=== PATIENT | female | born 1940 | race Caucasian/White ===

== ENCOUNTER → 2019-10-27 | Outpatient (CLI) | payer MEDICARE, OTHER ==
[~2019-10-27] MED LIST: AMIO200 PO; AMLO5 PO; ASPI81CH PO; CALCAVITD PO; CALCIUM PO; CARV25 PO; CARV6.25 PO; CHOL10002 PO; DIGO.125 PO; DILT120; DIPH50 PO; ELIQUIS5 MG PO; ERGO400 PO; FLUT.05NI; FURO20 PO; HYDR1TAB94 PO; IPRA.03NI; IPRA.06NI; Keflex500 MG PO; LETR2.5 PO; LEVSOD125; LEVSOD150 PO; LISI20 PO; LOVA20 PO; LOVA40 PO; MAGNESIUM PO; METF500 PO; METFORMIN HCL500 MG PO; MONT10T PO; MULVITMINF PO; MYRBETRIQ50 MG PO; Magnesium500 M1 PO; Nexium40 MG PO; Norco 5-325 Ta1 EACH PO; OXYACE5T PO; Omeprazole20 M1 PO; RXHYD5325 PO; Singulair10 MG PO; TIOT18; TIOT18 INH; WARF5 PO; WARF7.5 PO
[2019-10-28 15:50] LABS: Influenza A Negative (NEGATIVE); Influenza B Negative (NEGATIVE)
== END | disposition home or self-care (01) ==
LOC: LAB SHORT 18:12 → LAB 18:12
DX: J20.9 Acute bronchitis, unspecified (principal); R50.9 Fever, unspecified; R05 Cough
CPT/HCPCS: 87804; 87807

== ENCOUNTER 2020-05-09 14:14 | Emergency (ER) | payer MEDICARE, OTHER ==
[~2020-05-09] VITALS: Ht 162.6 cm; Wt 59.0 kg
[2020-05-09] MEDS ORDERED: Norco 5-325 Ta1 EACH PO (16:56)
[2020-05-09] MEDS ORDERED: ELIQUIS5 MG PO (17:18)
== END 2020-05-09 17:18 | disposition home or self-care (01) ==
LOC: ER 14:14
DX: S52.124A Nondisplaced fracture of head of right radius, initial encounter for closed fracture (principal); S00.83XA Contusion of other part of head, initial encounter; I48.91 Unspecified atrial fibrillation; E11.9 Type 2 diabetes mellitus without complications; E78.5 Hyperlipidemia, unspecified; K21.9 Gastro-esophageal reflux disease without esophagitis; I10 Essential (primary) hypertension; J44.9 Chronic obstructive pulmonary disease, unspecified; E03.9 Hypothyroidism, unspecified; Z88.4 Allergy status to anesthetic agent; Z79.01 Long term (current) use of anticoagulants; Z79.84 Long term (current) use of oral hypoglycemic drugs; Z79.899 Other long term (current) drug therapy; Z87.891 Personal history of nicotine dependence; W01.0XXA Fall on same level from slipping, tripping and stumbling without subsequent striking against object, initial encounter
CPT/HCPCS: 29105; 73030; 73080; 99283-25; A9270-GY

== ENCOUNTER 2020-06-17 23:17 | Inpatient (IN) | payer MEDICARE, OTHER ==
[~2020-06-17] VITALS: Ht 162.6 cm; Wt 62.4 kg
[2020-06-17 23:45] LABS: BASOPHILS ABSOLUTE AUTO 0.04 K/mm3 (0.00-0.23); BASOPHILS PERCENT AUTO 1 % (0-2); EOSINOPHILS ABSOLUTE AUTO 0.15 K/mm3 (0.00-0.68); EOSINOPHILS PERCENT AUTO 2 % (0-6); Hematocrit 36.2 % (33.0-51.0); Hemoglobin 11.4 g/dL (11.5-16.0); IMMATURE GRAN ABSOLUTE AUTO 0.02 K/mm3 (0.00-0.10); IMMATURE GRAN PERCENT AUTO 0 % (0-1); LYMPHOCYTES ABSOLUTE AUTO 2.55 K/mm3 (0.84-5.20); LYMPHOCYTES PERCENT AUTO 32 % (21-46); MONOCYTES ABSOLUTE AUTO 0.71 K/mm3 (0.16-1.47); MONOCYTES PERCENT AUTO 9 % (4-13); Mean Corpuscular HGB 29.5 pg (26.0-34.0); Mean Corpuscular HGB Conc 31.5 g/dL (31.5-36.5); Mean Corpuscular Volume 94 fL (80-100); NEUTROPHILS ABSOLUTE AUTO 4.46 K/mm3 (1.96-9.15); NEUTROPHILS PERCENT AUTO 56 % (41-73); Platelet Count 179 K/mm3 (150-400); RDW Coefficient Variation 14.8 % (11.7-14.2); RDW Standard Deviation 50.9 fL (35.1-46.3); Red Blood Cell Count 3.87 M/mm3 (3.80-5.20); White Blood Cell Count 7.93 K/mm3 (4.00-11.30)
[2020-06-17 23:57] LABS: Alanine Aminotransfer (ALT/SGP 16 U/L (12-78); Albumin, Blood 3.5 g/dL (3.4-5.0); Albumin/Globulin Ratio 1.1 (0.8-1.8); Alk Phos 73 U/L (50-136); Anion Gap 10 mmol/L (6-16); Aspartate Aminotrans (AST/SGOT 12 U/L (12-37); Bilirubin, Total 0.3 mg/dL (0.1-1.0); Blood Urea Nitrogen 11 mg/dL (8-24); Bun/Creatinine Ratio 14.8 (12.0-20.0); CO2, Blood 23 mmol/L (21-32); Calcium, Blood 9.1 mg/dL (8.5-10.1); Chloride, Blood 103 mmol/L (98-108); Creatinine, Blood 0.74 mg/dL (0.40-1.00); Globulin, Blood 3.2 g/dL (2.2-4.0); Glomerular Filtration Rate >60 (60-); Glucose, Blood 117 mg/dL (70-99); Sodium, Blood 136 mmol/L (136-145); Total Protein, Blood 6.7 g/dL (6.4-8.2)
[2020-06-18 00:01] LABS: International Normalized Ratio 1.02; Prothrombin Time Results 10.9 Sec (9.7-11.5)
[2020-06-18 01:37] LABS: Source, Urine Clean Catch
[2020-06-18 01:41] LABS: Appearance, Urine Clear (Clear); Bilirubin, Urine Neg (Neg); Blood, Urine Neg (Neg); Color, Urine Yellow (P-Yellow); Glucose Qualitative, Urine Neg (Neg); Ketones, Urine Neg (Neg); Leukocyte Esterase, Urine Neg (Neg); Nitrite, Urine Neg (Neg); Protein, Urine Neg (Neg); Specific Gravity, Urine 1.005 (1.003-1.022); Urobilinogen, Urine NORM (Normal)
[2020-06-18 06:05] LABS: BASOPHILS ABSOLUTE AUTO 0.02 K/mm3 (0.00-0.23); BASOPHILS PERCENT AUTO 0 % (0-2); EOSINOPHILS ABSOLUTE AUTO 0.01 K/mm3 (0.00-0.68); EOSINOPHILS PERCENT AUTO 0 % (0-6); Hematocrit 31.8 % (33.0-51.0); Hemoglobin 9.8 g/dL (11.5-16.0); IMMATURE GRAN ABSOLUTE AUTO 0.06 K/mm3 (0.00-0.10); IMMATURE GRAN PERCENT AUTO 1 % (0-1); LYMPHOCYTES ABSOLUTE AUTO 1.27 K/mm3 (0.84-5.20); LYMPHOCYTES PERCENT AUTO 10 % (21-46); MONOCYTES ABSOLUTE AUTO 0.62 K/mm3 (0.16-1.47); MONOCYTES PERCENT AUTO 5 % (4-13); Mean Corpuscular HGB 29.5 pg (26.0-34.0); Mean Corpuscular HGB Conc 30.8 g/dL (31.5-36.5); Mean Corpuscular Volume 96 fL (80-100); Mean Platelet Volume 11.4 fL (9.1-12.4); NEUTROPHILS ABSOLUTE AUTO 11.22 K/mm3 (1.96-9.15); NEUTROPHILS PERCENT AUTO 85 % (41-73); Platelet Count 231 K/mm3 (150-400); RDW Standard Deviation 52.5 fL (35.1-46.3); Red Blood Cell Count 3.32 M/mm3 (3.80-5.20)
[2020-06-18 06:20] LABS: Anion Gap 10 mmol/L (6-16); Blood Urea Nitrogen 12 mg/dL (8-24); Bun/Creatinine Ratio 16.5 (12.0-20.0); CO2, Blood 23 mmol/L (21-32); Calcium, Blood 8.8 mg/dL (8.5-10.1); Chloride, Blood 103 mmol/L (98-108); Creatinine, Blood 0.73 mg/dL (0.40-1.00); Glomerular Filtration Rate >60 (60-); Glucose, Blood 178 mg/dL (70-99); Potassium, Blood 4.2 mmol/L (3.5-5.5); Sodium, Blood 136 mmol/L (136-145)
--- NOTE | 2020-06-18 07:58 | NUR ---
BRADEN PT ADMITTED THIS SHIFT FOR CLOSED R HIP FX. NPO BEDREST PENDING POSSIBLE OR. REQUIRED DILAUDID 0.5 MG IV FOR PAIN.
--- NOTE | 2020-06-18 09:13 | NUR ---
PACER PT REPORTED TO NOC RN THAT HER PACEMAKER BATTERY IS BEING CHECKED EVERY 2 MONTHS. PT REPORTED SHE WAS UNSURE OF THE REASON. DR. CHRISTOPHER NOTIFIED AND VERBALIZED NO NEED FOR PACEMAKER INTERROGATION AT THIS TIME. NO EVENTS ON TELE, VSS. WILL CONTINUE TO MONITOR.
--- NOTE | 2020-06-18 14:18 | NUR ---
PT TO IMAGING
--- NOTE | 2020-06-18 14:41 | NUR ---
PT BACK FROM IMAGING.
[2020-06-18] MEDS ORDERED: FLUT.05NI INH (16:36)
[2020-06-18] MEDS ORDERED: HYDR1TAB94 PO (16:44)
--- NOTE | 2020-06-18 18:10 | NUR ---
SHIFT SUMMARY PT AOX4. VSS. PT GROUND LEVEL FALL, FX R HIP W/ EXTERNAL ROTATION . ANTICIPATING SURGERY PHYLLIS WITH DR. SEGOVIA. PT HAS A PACEMAKER, ON TELE, PACED AT 72 PER [facility]. PT HX OF COPD AND LOBECTOMY. SHE IS ON ROOM AIR AT 96 DENIES SOB AND DENIES CHEST PAIN/PRESSURE. PT TOLERATING PO INTAKE, DENIES NAUSEA AND NO VOMITING. ALTHOUGH SHE HAD 1 EPISODE OF NAUSEA AND VOMITING THIS MORNING AFTER ADMINSTERING DILAUDID. PT STS THAT SHE HAD PROBLEMS WITH HER PACEMAKER IN THE PAST. SHE HAD TO HAVE THE PACEMAKER'S BATTERY CHECK EVERY COUPLE MONTHS. SHE WILL BE NPO AFTER MIDNIGHT. 18G IV ON R FOREARM PRESENT. CBG OF 207 BEFORE DINNER. PT ALSO C/O MUSCLE CRAMPS ON BLE. CALLED PHARMACY TO RECONCILE MEDICATION LIST BY DAR HERMOSILLO.
[2020-06-19 03:57] LABS: BASOPHILS ABSOLUTE AUTO 0.02 K/mm3 (0.00-0.23); BASOPHILS PERCENT AUTO 0 % (0-2); EOSINOPHILS ABSOLUTE AUTO 0.05 K/mm3 (0.00-0.68); EOSINOPHILS PERCENT AUTO 1 % (0-6); Hematocrit 24.2 % (33.0-51.0); Hemoglobin 7.6 g/dL (11.5-16.0); IMMATURE GRAN ABSOLUTE AUTO 0.03 K/mm3 (0.00-0.10); IMMATURE GRAN PERCENT AUTO 0 % (0-1); LYMPHOCYTES ABSOLUTE AUTO 1.63 K/mm3 (0.84-5.20); LYMPHOCYTES PERCENT AUTO 18 % (21-46); MONOCYTES ABSOLUTE AUTO 0.93 K/mm3 (0.16-1.47); MONOCYTES PERCENT AUTO 10 % (4-13); Mean Corpuscular HGB 29.7 pg (26.0-34.0); Mean Corpuscular HGB Conc 31.4 g/dL (31.5-36.5); Mean Corpuscular Volume 95 fL (80-100); Mean Platelet Volume 11.4 fL (9.1-12.4); NEUTROPHILS ABSOLUTE AUTO 6.37 K/mm3 (1.96-9.15); NEUTROPHILS PERCENT AUTO 71 % (41-73); Platelet Count 159 K/mm3 (150-400); RDW Standard Deviation 51.5 fL (35.1-46.3); Red Blood Cell Count 2.56 M/mm3 (3.80-5.20); White Blood Cell Count 9.03 K/mm3 (4.00-11.30)
[2020-06-19 04:11] LABS: Albumin, Blood 2.9 g/dL (3.4-5.0); Anion Gap 4 mmol/L (6-16); Blood Urea Nitrogen 23 mg/dL (8-24); Bun/Creatinine Ratio 19.5 (12.0-20.0); CO2, Blood 29 mmol/L (21-32); Calcium, Blood 8.8 mg/dL (8.5-10.1); Chloride, Blood 99 mmol/L (98-108); Creatinine, Blood 1.18 mg/dL (0.40-1.00); Glomerular Filtration Rate 47 (60-); Glucose, Blood 145 mg/dL (70-99); Phosphorus, Blood 3.8 mg/dL (2.5-4.9); Potassium, Blood 4.9 mmol/L (3.5-5.5); Sodium, Blood 132 mmol/L (136-145)
--- NOTE | 2020-06-19 07:00 | NUR ---
RECVD REPORT FROM PREVIOUS SHIFT RN VIDA, PT AWAKE IN BED, A/O X 4, PLEASANT/COOPERATIVE. BED IN LOWEST POSITION, BED RAILS UP X 2, CALL LIGHT WITHIN REACH
--- NOTE | 2020-06-19 08:01 | NUR ---
SUMMARY PREOP PREPARED.SWELLING R THIGH AND H/H DROP. DAY RN AWARE AND AGRESS TO FU. CIRC CKS INTACT.
--- NOTE | 2020-06-19 09:20 | NUR ---
DR CHRISTOPHER HAD ROUNDING APPROX 0900. UP ON ROUNDING, PT STATES SHE IS "ITCHING LIKE CRAZY", AND THAT THIS HAS BEEN A SIDE EFFECT AFTER RECEIVING IV MEDICATION ON PREVIOUS ADMISSION. RECEIVED ORDER FOR IV BENADRYL FOR ITCHING
--- NOTE | 2020-06-19 11:21 | NUR ---
History, Chart, Medications and Allergies reviewed before start of procedure.Patient confirms NPO status and agrees with scheduled surgery.PT IS AWAKE, ALERT, ORIENTED X4. DENIES PAIN WHILE LAYING STILL.
--- NOTE | 2020-06-19 13:25 | NUR ---
06/19/20 1324 Maite Covarrubias PT ENTERED OR WITH CHRISTOPHER CATHETER
[2020-06-19 16:08] LABS: Hematocrit 25.5 % (33.0-51.0); Hemoglobin 8.1 g/dL (11.5-16.0)
--- NOTE | 2020-06-19 16:30 | NUR ---
pt returned to room via own bed from recovery, a/0 x 4, pleasant/cooperative, but drowsy. gamma nail repair of hip performed, rcvd 1 unit prbc during procedure. pt's in room. dr zaman rounding on pt and . post op vs commenced and stable thus far. jones catheter patent and draining clear dark yellow urine. aquacel dressing on surgical site from hip to knee c/d/i, capillary refill <3 seconds, able to wiggle toes and feels sensation
--- NOTE | 2020-06-19 18:30 | NUR ---
SHIFT SUMMARY: VSS, NO ACUTE CHANGES. PT COMPLETED SURGICAL REPAIR OF R HIP WITH A GAMMA NAIL. PT RETURNED TO HER ROOM APPROX 1630, POST OP VSS AND CONTINUING. PT DENIES N/V, PROVIDED ANALGESIA PER MAR AND OFFERED PO INTAKE. PT DENIES BEING HUNGRY.
[2020-06-20 04:15] LABS: BASOPHILS ABSOLUTE AUTO 0.01 K/mm3 (0.00-0.23); BASOPHILS PERCENT AUTO 0 % (0-2); EOSINOPHILS PERCENT AUTO 0 % (0-6); Hematocrit 21.9 % (33.0-51.0); IMMATURE GRAN ABSOLUTE AUTO 0.04 K/mm3 (0.00-0.10); IMMATURE GRAN PERCENT AUTO 0 % (0-1); LYMPHOCYTES ABSOLUTE AUTO 1.07 K/mm3 (0.84-5.20); LYMPHOCYTES PERCENT AUTO 11 % (21-46); MONOCYTES ABSOLUTE AUTO 0.93 K/mm3 (0.16-1.47); MONOCYTES PERCENT AUTO 10 % (4-13); Mean Corpuscular HGB 30.3 pg (26.0-34.0); Mean Corpuscular Volume 95 fL (80-100); Mean Platelet Volume 11.4 fL (9.1-12.4); NEUTROPHILS ABSOLUTE AUTO 7.39 K/mm3 (1.96-9.15); NEUTROPHILS PERCENT AUTO 78 % (41-73); Platelet Count 143 K/mm3 (150-400); RDW Coefficient Variation 14.8 % (11.7-14.2); RDW Standard Deviation 50.6 fL (35.1-46.3); Red Blood Cell Count 2.31 M/mm3 (3.80-5.20); White Blood Cell Count 9.44 K/mm3 (4.00-11.30)
[2020-06-20 04:33] LABS: Albumin, Blood 2.6 g/dL (3.4-5.0); Anion Gap 4 mmol/L (6-16); Blood Urea Nitrogen 25 mg/dL (8-24); Bun/Creatinine Ratio 22.7 (12.0-20.0); CO2, Blood 29 mmol/L (21-32); Calcium, Blood 8.2 mg/dL (8.5-10.1); Chloride, Blood 99 mmol/L (98-108); Glomerular Filtration Rate 51 (60-); Glucose, Blood 186 mg/dL (70-99); Potassium, Blood 5.7 mmol/L (3.5-5.5); Sodium, Blood 132 mmol/L (136-145)
--- NOTE | 2020-06-20 07:33 | NUR ---
SUMMARY PT REPOSITIONING IN BED WITH 2 PERSON ASSIST. VERB IV DILAUDID EFFECTIVE, BUT SLIGHT ITCHING.PLANS TO TAKE NORCO WITH BREAKFAST.CIRC CKS INTACT. TOLERATING PO.
--- NOTE | 2020-06-20 07:49 | NUR ---
PER [facility] SUBSTITUTE FOR ELIQUIS 5MG BID IS XARELTO 20 MG QD PHARM INSTRUCTED ME TO PUT IN 1200.
[2020-06-20 10:28] LABS: Hematocrit 21.3 % (33.0-51.0)
[2020-06-20 10:49] LABS: Albumin, Blood 2.5 g/dL (3.4-5.0); Anion Gap 4 mmol/L (6-16); Blood Urea Nitrogen 28 mg/dL (8-24); Bun/Creatinine Ratio 23.5 (12.0-20.0); CO2, Blood 27 mmol/L (21-32); Chloride, Blood 98 mmol/L (98-108); Creatinine, Blood 1.19 mg/dL (0.40-1.00); Glomerular Filtration Rate 46 (60-); Glucose, Blood 222 mg/dL (70-99); Phosphorus, Blood 3.8 mg/dL (2.5-4.9); Potassium, Blood 5.5 mmol/L (3.5-5.5); Sodium, Blood 129 mmol/L (136-145)
[2020-06-20 13:12] LABS: Percent Saturation 9.1 % (15.0-50.0)
--- NOTE | 2020-06-20 18:47 | NUR ---
SHIFT SUMMARY PT WAS NOT VERY SUCCESSFUL WITH THERAPY TODAY. PLEASANT. PAINFUL; REQUIRING IV PAIN MED x 2 THIS SHIFT. PT IS AGAINST ANY SNF DC PLANNING. EATING AND DRINKING WELL. SURG SITE WNL BUT EDEMA NOTED.
[2020-06-21 04:04] LABS: BASOPHILS ABSOLUTE AUTO 0.02 K/mm3 (0.00-0.23); BASOPHILS PERCENT AUTO 0 % (0-2); EOSINOPHILS PERCENT AUTO 1 % (0-6); Hematocrit 19.8 % (33.0-51.0); Hemoglobin 6.4 g/dL (11.5-16.0); IMMATURE GRAN ABSOLUTE AUTO 0.08 K/mm3 (0.00-0.10); IMMATURE GRAN PERCENT AUTO 1 % (0-1); LYMPHOCYTES ABSOLUTE AUTO 1.25 K/mm3 (0.84-5.20); LYMPHOCYTES PERCENT AUTO 14 % (21-46); MONOCYTES ABSOLUTE AUTO 0.88 K/mm3 (0.16-1.47); MONOCYTES PERCENT AUTO 10 % (4-13); Mean Corpuscular HGB 30.8 pg (26.0-34.0); Mean Corpuscular HGB Conc 32.3 g/dL (31.5-36.5); Mean Corpuscular Volume 95 fL (80-100); Mean Platelet Volume 10.7 fL (9.1-12.4); NEUTROPHILS PERCENT AUTO 74 % (41-73); NRBC ABSOLUTE 0.02 K/mm3 (0.00-0.02); NRBC Auto 0.2 /100 WBC (0.0-0.2); Platelet Count 157 K/mm3 (150-400); RDW Coefficient Variation 15.1 % (11.7-14.2); RDW Standard Deviation 50.7 fL (35.1-46.3); Red Blood Cell Count 2.08 M/mm3 (3.80-5.20); White Blood Cell Count 8.83 K/mm3 (4.00-11.30)
[2020-06-21 04:26] LABS: Albumin, Blood 2.6 g/dL (3.4-5.0); Anion Gap 5 mmol/L (6-16); Blood Urea Nitrogen 28 mg/dL (8-24); Bun/Creatinine Ratio 23.5 (12.0-20.0); CO2, Blood 28 mmol/L (21-32); Calcium, Blood 8.4 mg/dL (8.5-10.1); Chloride, Blood 96 mmol/L (98-108); Creatinine, Blood 1.19 mg/dL (0.40-1.00); Glomerular Filtration Rate 46 (60-); Glucose, Blood 161 mg/dL (70-99); Phosphorus, Blood 3.4 mg/dL (2.5-4.9); Sodium, Blood 129 mmol/L (136-145)
--- NOTE | 2020-06-21 17:38 | NUR ---
SHIFT SUMMARY PT WAS ABLE TO STAND WITH THERAPY BUT NOT MUCH MORE. PAIN APPEARS TO BE SLIGHTLY BETTER CONTROLLED. EATING AND DRINKING. CANDI DC/'D; PT VERY UNHAPPY ABOUT IT.
[2020-06-22 04:43] LABS: BASOPHILS ABSOLUTE AUTO 0.01 K/mm3 (0.00-0.23); BASOPHILS PERCENT AUTO 0 % (0-2); EOSINOPHILS ABSOLUTE AUTO 0.13 K/mm3 (0.00-0.68); EOSINOPHILS PERCENT AUTO 2 % (0-6); Hematocrit 21.9 % (33.0-51.0); Hemoglobin 7.1 g/dL (11.5-16.0); IMMATURE GRAN ABSOLUTE AUTO 0.08 K/mm3 (0.00-0.10); IMMATURE GRAN PERCENT AUTO 1 % (0-1); LYMPHOCYTES ABSOLUTE AUTO 1.05 K/mm3 (0.84-5.20); LYMPHOCYTES PERCENT AUTO 14 % (21-46); MONOCYTES PERCENT AUTO 10 % (4-13); Mean Corpuscular HGB 30.2 pg (26.0-34.0); Mean Corpuscular HGB Conc 32.4 g/dL (31.5-36.5); Mean Corpuscular Volume 93 fL (80-100); Mean Platelet Volume 10.6 fL (9.1-12.4); NEUTROPHILS PERCENT AUTO 73 % (41-73); NRBC ABSOLUTE 0.07 K/mm3 (0.00-0.02); Platelet Count 184 K/mm3 (150-400); RDW Coefficient Variation 15.8 % (11.7-14.2); Red Blood Cell Count 2.35 M/mm3 (3.80-5.20); White Blood Cell Count 7.27 K/mm3 (4.00-11.30)
--- NOTE | 2020-06-22 04:57 | NUR ---
SHIFT SUMMARY PT A/O X4. S/P R HIP NAILING ON 06/19. NWB TO R LEG. PT WAS ABLE TO STAND-PIVOT TO BSC ONCE DURING THE SHIFT, BUT HAS OTHERWISE BEEN USING BEDPAN D/T DIFFICULTY GETTING OUT OF BED. TOLERATING PO INTAKE AND VOIDING. PAIN MANAGED WITH NORCO X2 PRN PER ORDERS. PER TELE, PT HAS BEEN IN SR OVERNIGHT. PT RESTING IN BED AT THIS TIME. CALL LIGHT IN REACH.
[2020-06-22 05:05] LABS: Albumin, Blood 2.4 g/dL (3.4-5.0); Anion Gap 4 mmol/L (6-16); Blood Urea Nitrogen 26 mg/dL (8-24); Bun/Creatinine Ratio 30.1 (12.0-20.0); CO2, Blood 29 mmol/L (21-32); Calcium, Blood 8.3 mg/dL (8.5-10.1); Chloride, Blood 98 mmol/L (98-108); Creatinine, Blood 0.87 mg/dL (0.40-1.00); Glomerular Filtration Rate >60 (60-); Glucose, Blood 177 mg/dL (70-99); Phosphorus, Blood 2.8 mg/dL (2.5-4.9); Potassium, Blood 4.6 mmol/L (3.5-5.5); Sodium, Blood 131 mmol/L (136-145)
--- NOTE | 2020-06-22 07:50 | NUR ---
pt wakes to verbal stimuli stated she finally was able to get some sleep reports pain 3-11/26 pt has aquacel to r hip x3 with med sat no bruising noted pt denies dizziness
--- NOTE | 2020-06-22 13:15 | NUR ---
pt sitting up in chair iv iron infusing per new order
--- NOTE | 2020-06-22 17:50 | NUR ---
meds given as sched pt sitting up in recliner dr zaman by earlier to see pt pt stated he wanted her to wear a compression dressing to upper leg r/t swelling and she declined it yesterday he talked to her about it again today
--- NOTE | 2020-06-23 03:32 | NUR ---
SHIFT SUMMARY: POD 4 OF RIGHT HIP NAILING. PT IS ALERT AND ORIENTED X4 WHILE AWAKE. PT HAS BEEN ASLEEP MAJORITY OF THE SHIFT BUT IS EASILY AROUSABLE. NON-WEIGHT BEARING ON RIGHT LEG. PT IS TOLERATING PO INTAKE AND VOIDING. PAIN IS MANAGED WITH 2 NORCO'S AND BENADRYL PER EMAR ORDER. PT HAS BEEN IN SINUS RHYTHM PER TELE. PT IS ABLE TO AMBULATE TO COMMODE AND CHAIR. AQUACEL IS D/C/I ON THE RIGHT HIP. VS ARE WNL AND SHE IS ON RA. PT IS CURRENTLY LYING DOWN IN BED ASLEEP. CALL LIGHT IS WITHIN REACH. THE PLAN IS TO HAVE PT D/C HOME TODAY DURING DAYSHIFT.
[2020-06-23 05:08] LABS: Hematocrit 21.2 % (33.0-51.0); Hemoglobin 6.9 g/dL (11.5-16.0)
--- NOTE | 2020-06-23 08:35 | NUR ---
DR CHRISTOPHER HERE TO SEE PT.
[2020-06-23 10:47] LABS: Hematocrit 22.5 % (33.0-51.0); Hemoglobin 7.1 g/dL (11.5-16.0)
--- NOTE | 2020-06-23 10:51 | NUR ---
DR CHRISTOPHER NOTIFIED OF PT BEING LIGHTHEADED WITH THERAPY AND THAT SHE REPORTS SHE IS STILL LIGHTHEADED, DR CHRISTOPHER REPORTED THAT SHE WOULD ORDER SOME BLOOD FOR HER.
--- NOTE | 2020-06-23 18:00 | NUR ---
PT PRBC COMPLETE. PT TOLERATED WELL. PT REPORTS DIZZINESS BETTER. PT REPORTS PAIN GETTING BETTER AFTER PAIN MEDICATION.
--- NOTE | 2020-06-23 19:00 | NUR ---
SHIFT SUMMARY PT TOLERATING SMALL AMT OF FOOD. PT REPORTS NOT HAVING MUCH APPETITE AT TIMES. PT DRINKING. PT VOIDING. PT PASSING GAS. BOWEL CARE BEEN ENCOURAGED. PT REPORTS WILL TAKE MOM AT BEDTIME, REFUSED SUPPOSITORY. PT BEEN UP TO CHAIR. PT HAD 1 UNIT OF BLOOD TODAY AND TOLERATED IT WELL.
--- NOTE | 2020-06-24 03:45 | NUR ---
SHIFT SUMMARY: POD 5 RIGHT HIP NAILING PT HAS BEEN ALERT AND ORIENTED X4 WHILE AWAKE. SHE HAS BEEN TRYING TO SLEEP MOST OF THE SHIFT BUT WAS EASILY AROUSABLE. VITALS HAVE BEEN WNL AND SHE IS CURRENTLY ON RA. PAIN HAS BEEN MANAGED WITH 2 NORCOS. SHE IS A SBA WITH MINIMAL ASSISTANCE. SHE IS DRINKING, VOIDING, AND PASSING GAS. PT IS CONCERNED ABOUT NOT HAVING A BOWEL MOVEMENT, AND REQUESTS IN THE MORNING TO HAVE MILK OF MAG TO "MOVE THINGS ALONG". PT CALLS APPROPRIATELY AND HAS CALL LIGHT WITHIN REACH. PT DOES HAVE TELE ON AND WAS PACED WITH A RHYTHM OF 70 BPM. THE PLAN IS TO HAVE LABS DRAWN THIS MORNING TO CHECK HER H&H SINCE SHE HAD 1 UNIT OF BLOOD YESTERDAY DURING DAYSHIFT. SHE IS ALSO WAITING PLACEMENT FOR A SNF WHEN POSSIBLE.
--- NOTE | 2020-06-24 03:59 | NUR ---
SHIFT SUMMARY: POD 3 LEFT TOTAL KNEE PT HAS BEEN ALERT AND ORIENTED X4 WHILE AWAKE. SHE HAS BEEN TRYING TO SLEEP MAJORITY OF THE SHIFT, BUT IS EASILY AROUSABLE. PAIN HAS BEEN MANAGED WITH TYLENOL AND OXY. SHE HAS BEEN TOLERATING PO, VOIDING, AND PASSING GAS. ENCOURAGING BM CARE. PT REPORTS "FEELING BETTER" ABOUT HER CBG'S AND PO INTAKE. VS ARE WNL AND IS ON RA. SHE IS A SBA WHEN HAVING TO USE THE BATHROOM. PT IS CURRENTLY LYING IN BED SLEEPING. CALL LIGHT IS WITHIN REACH. THE PLAN IS TO WORK WITH PT/OT TODAY AND POSSIBLY HOME TODAY.
[2020-06-24 05:03] LABS: BASOPHILS ABSOLUTE AUTO 0.02 K/mm3 (0.00-0.23); BASOPHILS PERCENT AUTO 0 % (0-2); EOSINOPHILS ABSOLUTE AUTO 0.13 K/mm3 (0.00-0.68); EOSINOPHILS PERCENT AUTO 2 % (0-6); Hematocrit 24.9 % (33.0-51.0); Hemoglobin 7.9 g/dL (11.5-16.0); IMMATURE GRAN ABSOLUTE AUTO 0.12 K/mm3 (0.00-0.10); IMMATURE GRAN PERCENT AUTO 2 % (0-1); LYMPHOCYTES ABSOLUTE AUTO 0.99 K/mm3 (0.84-5.20); LYMPHOCYTES PERCENT AUTO 14 % (21-46); MONOCYTES ABSOLUTE AUTO 0.94 K/mm3 (0.16-1.47); MONOCYTES PERCENT AUTO 13 % (4-13); Mean Corpuscular HGB Conc 31.7 g/dL (31.5-36.5); Mean Corpuscular Volume 95 fL (80-100); Mean Platelet Volume 10.6 fL (9.1-12.4); NEUTROPHILS ABSOLUTE AUTO 5.11 K/mm3 (1.96-9.15); NEUTROPHILS PERCENT AUTO 70 % (41-73); NRBC ABSOLUTE 0.02 K/mm3 (0.00-0.02); NRBC Auto 0.3 /100 WBC (0.0-0.2); Platelet Count 224 K/mm3 (150-400); RDW Coefficient Variation 18.2 % (11.7-14.2); RDW Standard Deviation 58.7 fL (35.1-46.3); Red Blood Cell Count 2.63 M/mm3 (3.80-5.20); White Blood Cell Count 7.31 K/mm3 (4.00-11.30)
--- NOTE | 2020-06-24 21:30 | NUR ---
AQUACEL DRESSINGS X3 WERE REMOVED FROM RIGHT HIP AND ABOVE KNEE, DUE TO SATURATION. AREA CLEANSED WITH CHLORHEXIDINE AND 3 NEW AQUACEL DRESSING APPLIED. PATIENT IS UP TO BSC REGULARLY TO VOID. CALL LIGHT IN REACH.
--- NOTE | 2020-06-25 05:41 | NUR ---
PATIENT SLEPT FOR 2 HOUR INCREMENTS, UP TO BSC WITH ONE PERSON ASSIST. RIGHT HIP SWELLING IS THE SAME BEGINNING OF SHIFT. SEROUS FLUID IS DRAINING FROM THE TOP TWO SUTURE LINES ON THE RIGHT HIP INTO THE AQUACEL. CALL LIGHT IN PLACE, NO ACUTE CHANGES.
--- NOTE | 2020-06-25 10:18 | NUR ---
THERAPY IN TO SEE PT, FAMILY PRESENT. PT BEEN ASSISTED WITH ADL'S PRN. PT BEEN ENC TO INCREASE PO INTAKE (FOOD AND WATER). PT TAKING MULT BOWEL MEDICATIONS TO HELP WITH HAVING BM. PT REPORTS COMING TO SEE HER TODAY.
--- NOTE | 2020-06-25 16:01 | NUR ---
SHIFT SUMMARY PT EATING FOOD, BROUGHT IN SOME FOOD FOR HER. PT DRINKING. PT VOIDING AND PASSING GAS BUT NO BM NOTED YET. PT WORKED WITH THERAPY AND HAS BEEN COMPLETING HER EXCERCISES. PT HAD IRON. PT DENIED DIZZINESS T/O DAY. PT BEEN ASSISTED WITH ADL'S PRN. PT USING [place] APPR.
[2020-06-26 04:05] LABS: Hematocrit 27.1 % (33.0-51.0); Hemoglobin 8.4 g/dL (11.5-16.0); Mean Corpuscular HGB 30.4 pg (26.0-34.0); Mean Corpuscular Volume 98 fL (80-100); Mean Platelet Volume 9.8 fL (9.1-12.4); Platelet Count 241 K/mm3 (150-400); RDW Coefficient Variation 19.3 % (11.7-14.2); RDW Standard Deviation 61.8 fL (35.1-46.3); Red Blood Cell Count 2.76 M/mm3 (3.80-5.20); White Blood Cell Count 6.33 K/mm3 (4.00-11.30)
[2020-06-26 04:34] LABS: Anion Gap 4 mmol/L (6-16); Blood Urea Nitrogen 10 mg/dL (8-24); Bun/Creatinine Ratio 15.2 (12.0-20.0); CO2, Blood 30 mmol/L (21-32); Calcium, Blood 8.7 mg/dL (8.5-10.1); Chloride, Blood 99 mmol/L (98-108); Creatinine, Blood 0.66 mg/dL (0.40-1.00); Glomerular Filtration Rate >60 (60-); Glucose, Blood 186 mg/dL (70-99); Potassium, Blood 4.4 mmol/L (3.5-5.5); Sodium, Blood 133 mmol/L (136-145)
--- NOTE | 2020-06-26 07:55 | NUR ---
SHIFT SUMMARY: ACE IS A&OX4. VSS, MILD TEMP ELEVATION OF 99 THIS SHIFT. SHE IS A ONE PERSON ASSIST TO THE BEDSIDE COMMODE. SHE DID HAVE MULTIPLE BOWEL MOVEMENTS THIS SHIFT. SHE REPORTS THAT HER ABDOMEN FEELS CRAMPY WHICH SHE ATTRIBUTES TO THE BOWEL CARE GIVEN. SHE DID HAVE AN EPISODE OF NAUSEA THIS SHIFT FOR WHICH SHE REPORTED A CARTON OF MILK WAS EFFECTIVE. SHE WAS ENCOURAGED TO INCREASE HER PO INTAKE. SHE STATED THAT SHE DOESN'T LIKE MOST OF THE FOOD THAT COMES ON HER TRAY. SHE WAS INFORMED THAT REQUESTS COULD BE MADE AND THAT FOOD IS AVAILABLE FROM THE [facility]. SHE IS CONTINENT OF BLADDER AND BOWEL. SHE USES HER CALL LIGHT APPROPRIATELY. SHE IS LYING IN BED WITH HER CALL LIGHT IN REACH. WILL REPORT TO DAY SHIFT RN.
--- NOTE | 2020-06-26 11:28 | NUR ---
ALL DRESSINGS CHANGED TO R HIP/THIGH.
--- NOTE | 2020-06-26 16:38 | NUR ---
SHIFT SUMMARY PT EATING AND DRINKING BETTER TODAY. PT VOIDING AND HAVING BM'S TODAY. PT BEEN WORKING WITH THERAPY. PT BEEN UP TO CHAIR TODAY. PT BEEN ASSISTED WITH ADL'S PRN. PT USING CALL LIGHT APPR. PT FAMILY IN/OUT OF ROOM TODAY.
--- NOTE | 2020-06-27 05:54 | NUR ---
SHIFT SUMMARY PT A/O X4. SBA UP TO BSC WITH FWW. TOLERATING PO INTAKE AND VOIDING. PAIN MANAGED WITH PO PAIN MED PER ORDERS. AQUACEL CHANGED AT START OF SHIFT FOR SATURATION. NO ACUTE CHANGES OVERNIGHT. PT RESTING AT THIS TIME WITH CALL LIGHT IN PLACE.
--- NOTE | 2020-06-27 14:45 | NUR ---
DISCHARGE D/C'D VIA W/C TO [facility] [place]. EXTRA AQUACEL DRSGS SENT. PLEASANT AND COOPERATIVE BUT SLIGHTLY NERVOUS FOR NEW FACILY. AFEBRILE. EATING, DRINKING, AND VOIDING WELL.
== END 2020-06-27 14:50 | DRG 481 ==
LOC: ER 23:17 → SURS 06-18 02:12
PROVIDERS: Family Medicine; Internal Medicine; Orthopaedic Surgery; Physician Assistant; ADMIT Internal Medicine
PROC: 0QS604Z Reposition Right Upper Femur with Internal Fixation Device, Open Approach (ICD-10-PCS; 2020-06-20)
PROC: 30233N1 Transfusion of Nonautologous Red Blood Cells into Peripheral Vein, Percutaneous Approach (ICD-10-PCS; principal; 2020-06-21)
DX: S72.21XA Displaced subtrochanteric fracture of right femur, initial encounter for closed fracture (principal); N17.9 Acute kidney failure, unspecified; E87.1 Hypo-osmolality and hyponatremia; D62 Acute posthemorrhagic anemia; W01.0XXA Fall on same level from slipping, tripping and stumbling without subsequent striking against object, initial encounter; Y93.9 Activity, unspecified; Y92.009 Unspecified place in unspecified non-institutional (private) residence as the place of occurrence of the external cause; E03.9 Hypothyroidism, unspecified; Z90.2 Acquired absence of lung [part of]; Z95.0 Presence of cardiac pacemaker; Z96.652 Presence of left artificial knee joint; Z79.84 Long term (current) use of oral hypoglycemic drugs; Z87.891 Personal history of nicotine dependence; E78.5 Hyperlipidemia, unspecified; K21.9 Gastro-esophageal reflux disease without esophagitis; J44.9 Chronic obstructive pulmonary disease, unspecified; E87.5 Hyperkalemia; E11.22 Type 2 diabetes mellitus with diabetic chronic kidney disease; D50.9 Iron deficiency anemia, unspecified; I12.9 Hypertensive chronic kidney disease with stage 1 through stage 4 chronic kidney disease, or unspecified chronic kidney disease; K59.00 Constipation, unspecified; N18.31 Chronic kidney disease, stage 3a
CPT/HCPCS: 36415; 36430; 51702; 70450; 71045; 72125; 73502; 73552; 74176; 80048; 80053; 80069; 81003; 82607; 82728; 82746; 82947; 83540; 83550; 85014; 85018; 85025; 85027; 85610; 85730; 86850; 86900; 86901; 86920; 86923; 88307; 88311; 88341; 88342; 93005; 93010; 94760; 96374; 96375; 97110; 97112; 97116; 97162; 97166; 97530; 97535; 99285-25; A9270; A9270-GY; C1713; C1769; C9113; J0690; J1100; J1170; J1200; J1815; J2370; J2405; J2550; J2704; J2916; J3010; J7050; J7120; P9016; Q0163; U0004

== ENCOUNTER 2021-05-10 06:47 | Day surgery (SDC) | payer MEDICARE, OTHER ==
[~2021-05-10] VITALS: Ht 162.6 cm; Wt 56.7 kg
[~2021-05-10 06:47] MED LIST changes: +ELIQUIS2.5 MG PO; +FLUT.05NI INH; +LOSA25 PO
--- NOTE | 2021-05-10 10:15 | NUR ---
TO RECOVERY ROOM VIA BED. IJ CENTRAL LINE REMOVED BY JKaylieHAND CHAPARRITA AND TEGADERM APPLIED. LEFT SIDE PRESSURE DRESSING INTACT. DRESSING DRY.
--- NOTE | 2021-05-10 10:20 | NUR ---
BLANKA SCRIPT CALLED TO [facility].
--- NOTE | 2021-05-10 10:45 | NUR ---
KEFLEX 1 GM IV STARTED.
--- NOTE | 2021-05-10 10:50 | NUR ---
TYLENOL #3 TWO TABLETS GIVEN FOR 9/10 INCISIONAL PAIN. ACCEPTABLE PAIN LEVEL IS 3.
[2021-05-10] MEDS ORDERED: CEPH500 PO (11:08)
--- NOTE | 2021-05-10 11:26 | NUR ---
NECK PAIN FROM CENTRAL LINE RESOLVED. LEFT SIDED INCISIONAL PAIN STILL 9/10.
--- NOTE | 2021-05-10 12:02 | NUR ---
PROGRAMMED PACEMAKER TO PRE GENERATOR CHANGEOUT PARAMETERS. VVIR 2.5V@.4ms.
--- NOTE | 2021-05-10 12:18 | NUR ---
DRESSING FOR DISCHARGE. IV REMOVED INTACT. 2X2,COBAN AND MANUAL PRESSURE APPLIED. DISCHARGE INSTRUCTIONS GIVEN WITH VERBAL AND WRITTEN UNDERSTANDING.
--- NOTE | 2021-05-10 12:25 | NUR ---
DISCHARGED HOME VIA WHEELCHAIR. SON DRIVING.
== END 2021-05-10 12:30 | disposition home or self-care (01) ==
LOC: MHTC 06:47
DX: Z45.010 Encounter for checking and testing of cardiac pacemaker pulse generator [battery] (principal); I48.21 Permanent atrial fibrillation; I27.20 Pulmonary hypertension, unspecified; I10 Essential (primary) hypertension; E11.9 Type 2 diabetes mellitus without complications; E78.5 Hyperlipidemia, unspecified; I67.9 Cerebrovascular disease, unspecified; Z79.01 Long term (current) use of anticoagulants; Z88.5 Allergy status to narcotic agent; Z79.84 Long term (current) use of oral hypoglycemic drugs
CPT/HCPCS: 33210; 33222; 33228; 76937; 99152; 99153; A9270; C1769; C1781; C1785; C1894; J0690; J1200; J1644; J2250; J3010; J7030; J7040; J7050

== ENCOUNTER 2021-05-30 05:53 | Day surgery (SDC) | payer MEDICARE, OTHER ==
[~2021-05-30] VITALS: Ht 162.6 cm; Wt 56.5 kg
[~2021-05-30 05:53] MED LIST changes: +CEPH500 PO
--- NOTE | 2021-05-30 07:00 | NUR ---
History, Chart, Medications and Allergies reviewed before start of procedure. Lungs clear T/O to Auscultation. Pre-Op teaching done. Pt verbalizes understanding. Patient States Post-Procedure ride home has been arranged with son.
== END 2021-05-30 10:15 | disposition home or self-care (01) ==
LOC: ORSCMMR 05:53 → ORD 07:30 → ORSCMMR 10:15
PROVIDERS: Surgery
PROC: 0YU60JZ Supplement Left Inguinal Region with Synthetic Substitute, Open Approach (ICD-10-PCS; principal; 2021-05-30 07:30)
DX: K40.90 Unilateral inguinal hernia, without obstruction or gangrene, not specified as recurrent (principal); I10 Essential (primary) hypertension; I48.91 Unspecified atrial fibrillation; Z79.01 Long term (current) use of anticoagulants; J44.9 Chronic obstructive pulmonary disease, unspecified; F17.210 Nicotine dependence, cigarettes, uncomplicated; K21.9 Gastro-esophageal reflux disease without esophagitis; E03.9 Hypothyroidism, unspecified; Z79.84 Long term (current) use of oral hypoglycemic drugs; Z79.899 Other long term (current) drug therapy; Z79.82 Long term (current) use of aspirin
CPT/HCPCS: 82947; C1781; J0690; J7120

== ENCOUNTER 2021-06-23 09:24 | Day surgery (SDC) | payer MEDICARE, OTHER ==
[2021-06-23 11:29] LABS: Body Fluid WBC Count 220 /mm3 (0-999)
[2021-06-23 11:38] LABS: Albumin, Body Fluid 2.5 g/dL; Lactate Dehydrogenase, Body Fl 160 U/L; Protein, Body Fluid 4.3 g/dL
[2021-06-23 12:09] LABS: RBC Count, Body Fluid 71 /mm3 (0-0)
[2021-06-23 12:34] LABS: Appearance, Body Fluid Hazy (Clear); Color, Body Fluid L Yellow (None-Yellow); Total Cell Count, Body Fluid 100
== END 2021-06-23 23:38 | disposition home or self-care (01) ==
LOC: US 09:24
PROVIDERS: Family Medicine
DX: C80.1 Malignant (primary) neoplasm, unspecified (principal); R18.0 Malignant ascites
CPT/HCPCS: 49083; 82042; 83615; 84157; 89051

== ENCOUNTER 2021-08-04 14:31 | Day surgery (SDC) | payer MEDICARE, OTHER | END 2021-08-04 23:55 | disposition home or self-care (01) | LOC: US 14:31 | DX: C34.90 Malignant neoplasm of unspecified part of unspecified bronchus or lung (principal); R18.0 Malignant ascites; I12.9 Hypertensive chronic kidney disease with stage 1 through stage 4 chronic kidney disease, or unspecified chronic kidney disease; N18.31 Chronic kidney disease, stage 3a; E11.22 Type 2 diabetes mellitus with diabetic chronic kidney disease; J44.9 Chronic obstructive pulmonary disease, unspecified; E03.9 Hypothyroidism, unspecified; I48.91 Unspecified atrial fibrillation; Z88.5 Allergy status to narcotic agent | CPT/HCPCS: 76705 ==

== ENCOUNTER 2021-08-18 14:27 | Day surgery (SDC) | payer MEDICARE, OTHER | END 2021-08-18 16:00 | disposition home or self-care (01) | LOC: US 14:27 | DX: C34.90 Malignant neoplasm of unspecified part of unspecified bronchus or lung (principal); R18.0 Malignant ascites; G89.29 Other chronic pain; M54.9 Dorsalgia, unspecified; J44.9 Chronic obstructive pulmonary disease, unspecified; E03.9 Hypothyroidism, unspecified; E11.22 Type 2 diabetes mellitus with diabetic chronic kidney disease; N18.31 Chronic kidney disease, stage 3a; I48.91 Unspecified atrial fibrillation; Z88.5 Allergy status to narcotic agent; Z79.899 Other long term (current) drug therapy; Z79.84 Long term (current) use of oral hypoglycemic drugs | CPT/HCPCS: 76705 ==

== ENCOUNTER 2021-11-04 16:47 | Observation (INO) | payer MEDICARE, OTHER ==
[~2021-11-04] VITALS: Ht 162.6 cm; Wt 47.7 kg
[2021-11-04 17:12] LABS: BASOPHILS ABSOLUTE AUTO 0.04 K/mm3 (0.00-0.23); BASOPHILS PERCENT AUTO 0 % (0-2); EOSINOPHILS ABSOLUTE AUTO 0.03 K/mm3 (0.00-0.68); EOSINOPHILS PERCENT AUTO 0 % (0-6); Hematocrit 22.1 % (33.0-51.0); IMMATURE GRAN ABSOLUTE AUTO 0.68 K/mm3 (0.00-0.10); IMMATURE GRAN PERCENT AUTO 3 % (0-1); LYMPHOCYTES ABSOLUTE AUTO 3.33 K/mm3 (0.84-5.20); LYMPHOCYTES PERCENT AUTO 16 % (21-46); MONOCYTES ABSOLUTE AUTO 0.93 K/mm3 (0.16-1.47); MONOCYTES PERCENT AUTO 5 % (4-13); Mean Corpuscular HGB 32.3 pg (26.0-34.0); Mean Corpuscular HGB Conc 31.7 g/dL (31.5-36.5); Mean Corpuscular Volume 102 fL (80-100); Mean Platelet Volume 11.5 fL (9.1-12.4); NEUTROPHILS PERCENT AUTO 75 % (41-73); NRBC ABSOLUTE 0.27 K/mm3 (0.00-0.02); NRBC Auto 1.3 /100 WBC (0.0-0.2); Platelet Count 144 K/mm3 (150-400); RDW Coefficient Variation 22.4 % (11.7-14.2); RDW Standard Deviation 78.3 fL (35.1-46.3); Red Blood Cell Count 2.17 M/mm3 (3.80-5.20); White Blood Cell Count 20.31 K/mm3 (4.00-11.30)
[2021-11-04 17:26] LABS: Bilirubin, Total 2.5 mg/dL (0.1-1.0); Bun/Creatinine Ratio 40.4 (12.0-20.0); Calcium, Blood 8.9 mg/dL (8.5-10.1); Creatinine, Blood 1.46 mg/dL (0.40-1.00); Globulin, Blood 3.1 g/dL (2.2-4.0); Potassium, Blood 4.3 mmol/L (3.5-5.5); Total Protein, Blood 6.1 g/dL (6.4-8.2)
[2021-11-04 19:57] LABS: Base Excess Venous -3.1 mmol/L; Bicarbonate Venous 21.9 mmol/L (24.0-30.0); PCO2 Venous 39.2 mmHg (38-42); PO2 Venous 57.3 mmHg (38-42); pH Blood Venous 7.36 (7.34-7.37)
[2021-11-04 20:34] LABS: Source, Urine Fem Cath
[2021-11-04 20:36] LABS: Bilirubin, Urine Neg (Neg); Blood, Urine 1+ (Neg); Glucose Qualitative, Urine Neg (Neg); Ketones, Urine Neg (Neg); Leukocyte Esterase, Urine Neg (Neg); Nitrite, Urine Neg (Neg); Protein, Urine 2+ (Neg); Specific Gravity, Urine 1.015 (1.003-1.022); Urobilinogen, Urine 1+ (Normal)
[2021-11-04 20:43] LABS: Appearance, Urine Hazy (Clear); Color, Urine Pale Yellow (P-Yellow)
[2021-11-04 20:44] LABS: Bacteria Rare /hpf; Mucus Light (0-Heavy); Squamous Epithelial Cells Rare /hpf (Few); White Blood Cells, Urine 0-2 /hpf (0-5)
[2021-11-04] MEDS ORDERED: OMEP20ER PO (21:22)
[2021-11-04] MEDS ORDERED: FURO80 PO (21:22)
[2021-11-04] MEDS ORDERED: POTA8 (21:23)
[2021-11-04] MEDS ORDERED: KEYTRUDA100 MG/41 IV (21:23)
[2021-11-04] MEDS ORDERED: ALBU2.5V5 (21:23)
--- NOTE | 2021-11-04 22:27 | NUR ---
ADMISSION REPORT RECIEVED FROM ER NURSE. PATIENT BROUGHT TO PCU 19 VIA GURNEY, SLID OVER TO PCU BED WITH ASSISTANCE OF STAFF. PATIENT ALERT AND ORIENTED. PRBC STARTED IN ER, INFUSING UPON ARRIVAL. VSS. NO COMPLAINTS AT THIS TIME. ORIENTED TO ROOM AND CALL LIGHT SYSTEM. BED IN LOW POSITION, CALL LIGHT IN REACH. DR. AMAYA AT BEDSIDE COMPLETING H&P. SPOKE WITH DR. AMAYA ABOUT PATIENT'S CODE STATUS. CURRENT POLST IS AT HOME, SON TO BRING IN THE MORNING. AWAITING NEW ORDERS.
[2021-11-05 00:40] LABS: Hematocrit 24.4 % (33.0-51.0)
--- NOTE | 2021-11-05 05:26 | NUR ---
SHIFT SUMMARY PATIENT ALERT AND ORIENTED x4. VSS. PATIENT ON RA WITH O2 SAT >90%. 1 UNIT PRBC INFUSED, SEE TRANSFUSION RECORD IN CHART. NO BM THIS SHIFT. CHRISTOPHER DCd DUE TO PATIENT COMPLAINING OF DISCOMFORT SINCE ADMISSION. PATIENT REPORTED GREAT RELIEF OF DISCOMORT AFTER REMOVAL. PROTONIX GTT INFUSING PER EMAR. NO OTHER ACUTE CHANGES SINCE ADMISSION NOTE. WILL REPORT TO DAY SHIFT RN.
[2021-11-05 07:33] LABS: BASOPHILS ABSOLUTE AUTO 0.05 K/mm3 (0.00-0.23); BASOPHILS PERCENT AUTO 0 % (0-2); EOSINOPHILS ABSOLUTE AUTO 0.01 K/mm3 (0.00-0.68); EOSINOPHILS PERCENT AUTO 0 % (0-6); Hematocrit 24.1 % (33.0-51.0); Hemoglobin 7.8 g/dL (11.5-16.0); IMMATURE GRAN ABSOLUTE AUTO 0.93 K/mm3 (0.00-0.10); IMMATURE GRAN PERCENT AUTO 4 % (0-1); LYMPHOCYTES ABSOLUTE AUTO 3.55 K/mm3 (0.84-5.20); LYMPHOCYTES PERCENT AUTO 14 % (21-46); MONOCYTES ABSOLUTE AUTO 1.17 K/mm3 (0.16-1.47); MONOCYTES PERCENT AUTO 5 % (4-13); Mean Corpuscular HGB 31.6 pg (26.0-34.0); Mean Corpuscular HGB Conc 32.4 g/dL (31.5-36.5); Mean Corpuscular Volume 98 fL (80-100); Mean Platelet Volume 10.8 fL (9.1-12.4); NEUTROPHILS ABSOLUTE AUTO 18.93 K/mm3 (1.96-9.15); NEUTROPHILS PERCENT AUTO 77 % (41-73); NRBC ABSOLUTE 0.46 K/mm3 (0.00-0.02); NRBC Auto 1.9 /100 WBC (0.0-0.2); Platelet Count 133 K/mm3 (150-400); RDW Coefficient Variation 22.6 % (11.7-14.2); RDW Standard Deviation 71.8 fL (35.1-46.3); Red Blood Cell Count 2.47 M/mm3 (3.80-5.20); White Blood Cell Count 24.64 K/mm3 (4.00-11.30)
[2021-11-05 07:40] LABS: Albumin, Blood 2.9 g/dL (3.4-5.0); Bilirubin, Total 2.5 mg/dL (0.1-1.0); Bun/Creatinine Ratio 45.6 (12.0-20.0); Calcium, Blood 8.8 mg/dL (8.5-10.1); Creatinine, Blood 1.49 mg/dL (0.40-1.00); Globulin, Blood 2.9 g/dL (2.2-4.0); Potassium, Blood 4.4 mmol/L (3.5-5.5); Total Protein, Blood 5.8 g/dL (6.4-8.2)
--- NOTE | 2021-11-05 10:20 | NUR ---
LATE ENTRY AM NOTED PT A&Ox3, FORGETFUL AT TIMES. PT RESTING IN BED, ASSISTING WITH REPOSITIONING. PT REPORTS "NOT FEELING WELL" WHEN ASKED FOR FURTHER QUESTIONS, PT STATES SHE IS TIRED. NOTIFIED DR RODRIGUES OF PT INCREASED RESP RATE 28-32 AND INCREASE EFFORT; DR RODRIGUES AND DR PATEL TO BEDSIDE, NO NEW ORDERS. PT DENIES PAIN, CHEST PAIN/PRESSURE, NASUEA AND DIZZINESS. VSS. NO OTHER ACUTE CHANGES. WILL CONTINUE TO MONITOR.
[2021-11-05 10:25] LABS: Influenza A, PCR NEGATIVE (NEGATIVE); Influenza B, PCR NEGATIVE (NEGATIVE); Resp Syncytial Virus, PCR NEGATIVE (NEGATIVE); SARS-Cov-2 (COVID-19) PCR, MMC NEGATIVE (NEGATIVE)
[2021-11-05 12:32] LABS: Hematocrit 23.3 % (33.0-51.0); Hemoglobin 7.6 g/dL (11.5-16.0)
--- NOTE | 2021-11-05 13:40 | NUR ---
PT TRANFFERED TO [facility] FROM FLOOR [facility]IA [facility]. History, Chart, Medications and Allergies reviewed before start of procedure. Patient confirms NPO status and agrees with scheduled surgery. Pre-Op teaching done. Pt verbalizes understanding. LUNGS COARSE THROUGHOUT, LABORED BREATHING.
--- NOTE | 2021-11-05 13:53 | NUR ---
11/05/21 1353 AURELIANO SWAN History, Chart, Medications and Allergies reviewed before start of procedure. 3-LEAD EKG REVIEWED WITH PHYSICIAN PRIOR TO START OF PROCEDURE. O2 VIA POM INTACT THROUGHOUT SEDATION/PROCEDURE. MONITOR INTACT WITH CONTINUOUS PULSE OXIMETRY AND INTERMITTENT BP. GENERAL WITH DR. MALLORY.
--- NOTE | 2021-11-05 15:30 | NUR ---
Responded to rapid response to patient's room. She recently had EGD and has SBPs in the 40s. Multidisicplinary team ih her room and family has been called and is coming. Pt shortly before 1530 and staff are waiting for family to arrive. [employer] has been called. PC available to assist when family arrives if family arrives before the behavioral sciences department chair does.
--- NOTE | 2021-11-05 16:20 | NUR ---
PATIENT BACK FROM EGD THIS AFTERNOON AT 1430; AT THIS TIME BP SOFT BUT STABLE. PT C/O BURNING SENATION IN ABD, DR GLASS AT BEDSIDE; NO NEW ORDER FOR PAIN MANAGEMENT. NOTIFIED DR RODRIGUES OF PAIN, NEW ORDERS FOR GI COCKTAIL AND MIRALAX. BP DIPPED TO 83/58, RECHECKED AT 94/56; CONTINUES TO MONITOR. BP AT 62/47; PT NOT RESPONDING, PT BODY CURLED UP ON SIDE. NOTIFIED DR RODRIGUES, CALLED RAPID; AGINAL BREATHING NOTED; UNABLE TO GET PULSE OX SPO2; PLACED IN [place]; STARTED NS BOLUS; NOTIFIED SON, JAYJAY OF DETERIORATING STATUS AND DIRECTED TO COME IN. DR RODRIGUES AND JORGE AT BEDSIDE, ORDERS FOR DOPAMINE GTT; PT STOPPED BREATHING. TIME OF CALLED BY DR PATEL AT APPROX 1528. SON AT BEDSIDE THIS EVENING, DR RODRIGUES AND ASHANTI COLVIN AT BEDSIDE. SON REQUESTING [facility] THE [facility] IN [place].
--- NOTE | 2021-11-05 16:34 | NUR ---
Pt is recently when I arrive at the same time as pt's son, Basilio. He is overwhelmed and tearful, but grieves appropriately. He repeats, "I am so lost." I conduct a life review of pt and of their relationship as it has changed and shifted throught the yrs. He is has been her caregiver as wel as his stepdad's caregiver for the last year and a half. I provide anxiety containment, grief support, therapeutic listening and prayer. I also aid in helping Basilio select [facility] as it is blocks from his house. I give Basilio my business card for futher grief support if he finds he needs it. Basilio displays evidence of being comforted by the interventions.
== END 2021-11-05 19:33 ==
LOC: ER 16:47 → PCU 16:48
PROVIDERS: Emergency Medicine; Student in an Organized Health Care Education/Training Program; ADMIT Internal Medicine
PROC: 0DJ08ZZ Inspection of Upper Intestinal Tract, Via Natural or Artificial Opening Endoscopic (ICD-10-PCS; principal; 2021-11-05 12:45)
DX: K92.2 Gastrointestinal hemorrhage, unspecified (principal); K92.1 Melena; E03.9 Hypothyroidism, unspecified; J44.9 Chronic obstructive pulmonary disease, unspecified; E78.5 Hyperlipidemia, unspecified; E11.9 Type 2 diabetes mellitus without complications; I10 Essential (primary) hypertension; J90 Pleural effusion, not elsewhere classified; D68.9 Coagulation defect, unspecified; R06.00 Dyspnea, unspecified; N17.9 Acute kidney failure, unspecified; C34.92 Malignant neoplasm of unspecified part of left bronchus or lung; R64 Cachexia; I48.91 Unspecified atrial fibrillation; I95.9 Hypotension, unspecified; Z66 Do not resuscitate; Z88.8 Allergy status to other drugs, medicaments and biological substances; Z96.652 Presence of left artificial knee joint; Z95.0 Presence of cardiac pacemaker; Z87.891 Personal history of nicotine dependence; Z79.01 Long term (current) use of anticoagulants; Z20.822 Contact with and (suspected) exposure to COVID-19; Z51.5 Encounter for palliative care
CPT/HCPCS: 0241U; 36415; 36430; 51702; 71045; 71260; 80053; 81001; 82803; 82947; 83880; 84484; 85014; 85018; 85025; 86850; 86900; 86901; 86923; 87086; 93005; 93010; 96374; 96375; 96376; 99285-25; A9270; C9113; G0378; J1265; J2001; J2370; J2704; J3010; J7030; J7120; P9016; Q9967